=== PATIENT | female | born 1965 | race Caucasian/White ===

== ENCOUNTER 2017-08-02 18:50 | Emergency (ER) | payer MEDICAID ==
[~2017-08-02] VITALS: Ht 175.3 cm; Wt 68.2 kg
[~2017-08-02 18:50] MED LIST: ALPR1TAB3 PO; BACT800T5 PO; CEPH500C3 PO; LEVO.088 PO; LISI-363 PO; PERC5TAB12 PO; PRIL20CA PO; SIMV20TA PO
[2017-08-02 19:00] VITALS: BP 158/89; PULSE 92; RESP 16; TEMP 98.4; O2SAT 99
[2017-08-02 21:01] LABS: AUTOMATED NEUTROPHIL # 8.2 TH/MM3 (1.8-7.7); BASOPHIL % 0.2 % (0.0-2.0); EOSINOPHIL # 0.1 TH/MM3 (0-0.4); EOSINOPHIL % 0.7 % (0.0-4.0); HEMATOCRIT 43.4 % (35.0-46.0); LYMPH % 19.8 % (9.0-44.0); LYMPHOCYTE # 2.2 TH/MM3 (1.0-4.8); MEAN CELL VOLUME 97.1 FL (80.0-100.0); MEAN CORPUSCULAR HEMOGLOBIN 33.6 PG (27.0-34.0); MEAN CORPUSCULAR HGB CONC 34.6 % (32.0-36.0); MEAN PLATELET VOLUME 7.1 FL (7.0-11.0); MONO % 4.8 % (0.0-8.0); MONOCYTE # 0.5 TH/MM3 (0-0.9); NEUT % 74.5 % (16.0-70.0); PLATELET COUNT 322 TH/MM3 (150-450); RED BLOOD COUNT 4.46 MIL/MM3 (4.00-5.30); RED CELL DISTRIBUTION WIDTH 12.7 % (11.6-17.2)
[2017-08-02 21:13] LABS: BICARBONATE 24.6 MEQ/L (21.0-32.0); BLOOD UREA NITROGEN 4 MG/DL (7-18); CALCIUM 9.1 MG/DL (8.5-10.1); CHLORIDE 99 MEQ/L (98-107); CREATININE 0.63 MG/DL (0.50-1.00); GLOMERULAR FILTRATION RATE 99 ML/MIN (>89); GLUCOSE,RANDOM 94 MG/DL (74-106); MAGNESIUM 2.2 MG/DL (1.5-2.5); SODIUM (NA) 131 MEQ/L (136-145)
[2017-08-02 21:17] LABS: TROPONIN I LESS THAN 0.02 NG/ML (0.02-0.05)
[2017-08-02] MEDS ORDERED: SIMV20TA PO (22:06)
[2017-08-02] MEDS ORDERED: LEVO.075 PO (22:06)
[2017-08-02] MEDS ORDERED: LISI40TA PO (22:06)
[2017-08-02] MEDS ORDERED: XANA1TAB2 PO (22:06)
[2017-08-02] MEDS ORDERED: PRIL20TA2 (22:06)
[2017-08-02 22:07] VITALS: BP 183/82; PULSE 75; RESP 17; O2SAT 100
--- NOTE | 2017-08-02 22:13 | EKG ---
Date Performed: 08/02/2017 Time Performed: 20:07:50 PTAGE: 52 years EKG: Sinus rhythm NORMAL ECG PREVIOUS TRACING : 06/08/2014 06.49 Since previous tracing, no significant change noted DOCTOR: Betty Luciano Interpretating Date/Time 08/02/2017 22:11:35
--- NOTE | 2017-08-02 22:27 | PD ---
HPI Chief Complaint: Anxiety Time Seen by Provider: 22:17 Travel History International Travel<30 days: No Contact w/Intl Traveler<30days: No Traveled to known affect area: No History of Present Illness HPI 52-year-old female with history of anxiety disorder brought in by [facility] from home for evaluation of severe panic attack. She tells me that her at home has Crohn's disease and she has been under a lot of stress because of this. She had a panic attack last night, however she misplaced her Xanax bottle , and was unable to take any of these medications today. She reports feeling nauseous and having some loose bowel movements as well. No chest pain or dyspnea. No abdominal pain. No fevers or recent illness. She denies suicidal or homicidal ideation. PFSH Past Medical History Anxiety: Yes Depression: Yes Cancer: Yes (THYROID) High Cholesterol: Yes Diminished Hearing: No GERD: Yes Headaches: Yes Hypertension: Yes Psychiatric: Yes (PANIC DISORDER) Integumentary: Yes (HX SKIN INFECTIONS) Immunizations Current: Yes Migraines: Yes Radiation Therapy: Yes (THYROID) Thyroid Disease: Yes (THYROID REMOVED) Ulcer: Yes ?: Not Menopausal: Yes Past Surgical History Abdominal Surgery: Yes (REMOVAL OF SCAR TISSUE AND ADHESIONS) Appendectomy: Yes (1999) Endocrine Surgery: Yes (THYROIDECTOMY) Hysterectomy: Yes Social History Alcohol Use: No Tobacco Use: Yes (2 ppd) Substance Use: No Allergies-Medications (Allergen,Severity, Reaction): Coded Allergies: promethazine (Unverified Adverse Reaction, Unknown, JITTERY, 02/22/17) Reported Meds & Prescriptions Reported Meds & Active Scripts Active Reported Xanax (Alprazolam) 1 Mg Tab 1 Mg PO Q8H PRN Synthroid (Levothyroxine Sodium) 75 Mcg Tab 75 Mcg PO DAILY Lisinopril 40 Mg Tab 40 Mg PO DAILY Prilosec (Omeprazole Magnesium) 20 Mg Tab Simvastatin 20 Mg Tab 20 Mg PO DAILY Review of Systems Except as stated in HPI: all other systems reviewed are Neg Physical Exam Narrative GENERAL: Well-developed, well-nourished, awake, alert, calm, no apparent distress. SKIN: Focused skin assessment warm/dry. No rash. HEAD: Atraumatic. Normocephalic. EYES: Pupils equal and round. No scleral icterus. No injection or drainage. ENT: Mucous membranes pink and moist. NECK: Trachea midline. No JVD. CARDIOVASCULAR: Regular rate and rhythm. No murmur appreciated. RESPIRATORY: No accessory muscle use. Clear to auscultation. Breath sounds equal bilaterally. GASTROINTESTINAL: Abdomen soft, non-tender, nondistended. MUSCULOSKELETAL: No obvious deformities. No clubbing. No cyanosis. No edema. NEUROLOGICAL: Awake and alert. No obvious cranial nerve deficits. Motor grossly within normal limits. Normal speech. PSYCHIATRIC: Appropriate mood and affect; insight and judgment normal. Data Data Last Documented VS Vital Signs Date Time Temp Pulse Resp B/P (MAP) Pulse Ox O2 Delivery O2 Flow Rate FiO2 08/02/17 23:21 64 17 154/76 (102) 99 Room Air 08/02/17 19:00 98.4 Orders Orders Complete Blood Count With Diff (08/02/17 19:09) Basic Metabolic Panel (Bmp) (08/02/17 19:09) Creatine Kinase (Cpk) (08/02/17 19:09) Troponin I (08/02/17 19:09) Electrocardiogram (08/02/17 ) Magnesium (Mg) (08/02/17 19:09) Lorazepam (Ativan) (08/02/17 22:30) Ondansetron Odt (Zofran Odt) (08/02/17 22:30) Labs Laboratory Tests Test 08/02/17 20:15 White Blood Count 11.0 TH/MM3 Red Blood Count 4.46 MIL/MM3 Hemoglobin 15.0 GM/DL Hematocrit 43.4 % Mean Corpuscular Volume 97.1 FL Mean Corpuscular Hemoglobin 33.6 PG Mean Corpuscular Hemoglobin Concent 34.6 % Red Cell Distribution Width 12.7 % Platelet Count 322 TH/MM3 Mean Platelet Volume 7.1 FL Neutrophils (%) (Auto) 74.5 % Lymphocytes (%) (Auto) 19.8 % Monocytes (%) (Auto) 4.8 % Eosinophils (%) (Auto) 0.7 % Basophils (%) (Auto) 0.2 % Neutrophils # (Auto) 8.2 TH/MM3 Lymphocytes # (Auto) 2.2 TH/MM3 Monocytes # (Auto) 0.5 TH/MM3 Eosinophils # (Auto) 0.1 TH/MM3 Basophils # (Auto) 0.0 TH/MM3 CBC Comment DIFF FINAL Differential Comment Blood Urea Nitrogen 4 MG/DL Creatinine 0.63 MG/DL Random Glucose 94 MG/DL Calcium Level 9.1 MG/DL Magnesium Level 2.2 MG/DL Sodium Level 131 MEQ/L Potassium Level 3.5 MEQ/L Chloride Level 99 MEQ/L Carbon Dioxide Level 24.6 MEQ/L Anion Gap 7 MEQ/L Estimat Glomerular Filtration Rate 99 ML/MIN Total Creatine Kinase 80 U/L Troponin I LESS THAN 0.02 NG/ML MDM Medical Decision Making Medical Screen Exam Complete: Yes Emergency Medical Condition: Yes Differential Diagnosis Panic attack/anxiety Narrative Course Vital signs reviewed. CBC is unremarkable. BMP is remarkable for sodium 131, otherwise unremarkable. Cardiac enzymes are negative. Patient has signs and symptoms consistent with a panic attack. She usually takes Xanax for this, however she states she misplaced her bottle of Xanax last night. She denies suicidal or homicidal ideation. Her physical exam is pretty unremarkable. She is very comfortable on the stretcher. She is not in any distress. No abdominal tenderness. Plan is to give her a dose of Xanax and Zofran here in the emergency department and if her symptoms improve, then she will be discharged home and advised to follow-up with her primary care physician tomorrow for a refill of her medication. Diagnosis Primary Impression: Anxiety attack Referrals: Primary Care Physician 3 days Additional Instructions: Follow-up with your primary care physician in the next 1-2 days. Return to the emergency department for worsening symptoms or any other concerns. Disposition: 01 DISCHARGE HOME Condition: Stable Adarsh Schilling MD Aug 02, 2017 22:26
[2017-08-02] MEDS ORDERED: LORazepam 1 MG TAB PO ONE (22:30)
[2017-08-02] MEDS ORDERED: ONDANSETRON ODT 4 MG TAB PO ONE (22:30)
[2017-08-02 23:21] VITALS: BP 154/76; PULSE 64; RESP 17; O2SAT 99
== END 2017-08-02 23:50 | disposition home or self-care (01) ==
LOC: NEPD 18:50
DX: F41.0 Panic disorder [episodic paroxysmal anxiety] (principal); F32.9 Major depressive disorder, single episode, unspecified; E78.00 Pure hypercholesterolemia, unspecified; I10 Essential (primary) hypertension; K21.9 Gastro-esophageal reflux disease without esophagitis; F17.200 Nicotine dependence, unspecified, uncomplicated
CPT/HCPCS: 80048; 82550; 83735; 84484; 85025; 93005

== ENCOUNTER 2017-10-27 15:54 | Emergency (ER) | payer MEDICAID ==
[~2017-10-27] VITALS: Ht 175.3 cm; Wt 65.0 kg
[~2017-10-27 15:54] MED LIST changes: -ALPR1TAB3 PO; -BACT800T5 PO; -CEPH500C3 PO; +LEVO.075 PO; -LEVO.088 PO; -LISI-363 PO; +LISI40TA PO; -PERC5TAB12 PO; -PRIL20CA PO; +PRIL20TA2; +XANA1TAB2 PO
[2017-10-27 15:56] VITALS: BP 127/74; PULSE 86; RESP 14; TEMP 97.6; O2SAT 96
[2017-10-27] MEDS ORDERED: AMLO10TA2 PO (16:16)
[2017-10-27] MEDS ORDERED: PERC5TAB12 PO (16:17)
--- NOTE | 2017-10-27 16:34 | PD ---
HPI Chief Complaint: Skin Problem Time Seen by Provider: 16:27 Travel History International Travel<30 days: No Contact w/Intl Traveler<30days: No Traveled to known affect area: No History of Present Illness HPI 52-year-old female here for evaluation of skin discoloration to her low back 5 days. She reports that she frequently uses a heating pad for her chronic low back pain. We will getting in the shower 5 days ago she noticed that the skin of her low back appeared darker than her surrounding skin, she is unsure how long it has been this way. The area is not painful or pruritic. No fever chills. She has no medical complaint. Symptom severity is mild. No aggravating or alleviating factors. PFSH Past Medical History Anxiety: Yes Depression: Yes Cancer: Yes (THYROID) High Cholesterol: Yes Diminished Hearing: No GERD: Yes Headaches: Yes Hypertension: Yes Psychiatric: Yes (PANIC DISORDER) Integumentary: Yes (HX SKIN INFECTIONS) Immunizations Current: Yes Migraines: Yes Radiation Therapy: Yes (THYROID) Thyroid Disease: Yes (THYROID REMOVED) Ulcer: Yes Tetanus Vaccination: > 5 Years Influenza Vaccination: No ?: Not Menopausal: Yes Past Surgical History Abdominal Surgery: Yes (REMOVAL OF SCAR TISSUE AND ADHESIONS laparoscopy) Appendectomy: Yes (1999) Endocrine Surgery: Yes (THYROIDECTOMY) Hysterectomy: Yes Social History Alcohol Use: No Tobacco Use: Yes (2 ppd) Substance Use: No Allergies-Medications (Allergen,Severity, Reaction): Coded Allergies: promethazine (Unverified Adverse Reaction, Unknown, JITTERY, 10/27/17) Reported Meds & Prescriptions Reported Meds & Active Scripts Active Reported Percocet (Oxycodone-Acetaminophen) 5-325 mg Tab 1 Tab PO Q6H PRN Amlodipine (Amlodipine Besylate) 10 Mg Tab 10 Mg PO DAILY Xanax (Alprazolam) 1 Mg Tab 1 Mg PO Q8H PRN Synthroid (Levothyroxine Sodium) 75 Mcg Tab 75 Mcg PO DAILY Lisinopril 40 Mg Tab 40 Mg PO DAILY Prilosec (Omeprazole Magnesium) 20 Mg Tab Simvastatin 20 Mg Tab 20 Mg PO DAILY Review of Systems Except as stated in HPI: all other systems reviewed are Neg General / Constitutional: No: Fever Eyes: No: Visual changes HENT: No: Headaches Cardiovascular: No: Chest Pain or Discomfort Respiratory: No: Shortness of Breath Gastrointestinal: No: Abdominal Pain Genitourinary: No: Dysuria Musculoskeletal: No: Pain Skin: Positive Rash Neurologic: No: Weakness Physical Exam Narrative GENERAL: Alert and well-appearing 52-year-old female. SKIN: Warm and dry. Faint hyperpigmentation to the left low back. No warmth, induration, or lymphangitis HEAD: Normocephalic. EYES: No scleral icterus. No injection or drainage. NECK: Supple, trachea midline. No JVD or lymphadenopathy. CARDIOVASCULAR: Regular rate and rhythm without murmurs, gallops, or rubs. RESPIRATORY: Breath sounds equal bilaterally. No accessory muscle use. GASTROINTESTINAL: Abdomen soft, non-tender, nondistended. MUSCULOSKELETAL: No cyanosis, or edema. BACK: Nontender without obvious deformity. No CVA tenderness. Data Data Last Documented VS Vital Signs Date Time Temp Pulse Resp B/P (MAP) Pulse Ox O2 Delivery O2 Flow Rate FiO2 10/27/17 15:56 97.6 86 14 127/74 (91) 96 MDM Medical Decision Making Medical Screen Exam Complete: Yes Emergency Medical Condition: Yes Differential Diagnosis Hyperpigmentation caused by heating pad use, vasculitis, other unspecified skin rash Narrative Course 52-year-old female here with hyperpigmentation in the area of skin where she frequently uses a heating pad. She is nontoxic appearing. Vital signs are stable. She was instructed to discontinue use of heating pad. Diagnosis Primary Impression: Discoloration of skin Referrals: Primary Care Physician Disposition: 01 DISCHARGE HOME Condition: Stable Alice Fitzpatrick Oct 27, 2017 16:34
== END 2017-10-27 16:50 | disposition home or self-care (01) ==
LOC: PHEFT 15:54
DX: L81.9 Disorder of pigmentation, unspecified (principal); G89.29 Other chronic pain; M54.5 Low back pain; F41.9 Anxiety disorder, unspecified; F32.9 Major depressive disorder, single episode, unspecified; E78.00 Pure hypercholesterolemia, unspecified; K21.9 Gastro-esophageal reflux disease without esophagitis; I10 Essential (primary) hypertension; Z85.850 Personal history of malignant neoplasm of thyroid
CPT/HCPCS: 99281